=== PATIENT | female | born 1960 | race Caucasian/White ===

== ENCOUNTER 2025-04-28 07:30 | Day surgery (SDC) | payer BC ==
[~2025-04-28 07:30] MED LIST: Sodium Chloride 0.9% 10 ML Syringe FLUSH PRN; Sodium Chloride 0.9% 10 ML Syringe FLUSH SCH
[2025-04-28] MEDS ORDERED: propofoL 500 MG/50 ML 50 ML ONE (07:51)
[2025-04-28] MEDS ORDERED: dexmedeTOMIDine HCl 200 MCG/2 ML SDV ONE (07:52)
[2025-04-28] MEDS ORDERED: Ondansetron 4 MG/2 ML SDV ONE (07:52)
[2025-04-28] MEDS: Lactated Ringers 1,000 ML IV SCH (07:55)
[2025-04-28] MEDS: oxyCODONE ER 10 MG TAB.ER PO SCH (08:44)
[2025-04-28] MEDS: Clindamycin Phosphate in D5W 900 MG in Premix Bag 1 BAG IV ONE (08:44)
[2025-04-28] MEDS ORDERED: Phenylephrine 1% 10 MG/ML SDV ONE (08:54)
[2025-04-28] MEDS: Morphine 8 MG, EPINEPHrine 0.3 MG, Ketorolac 30 MG, Sodium Chloride 0.9% 7.9 ML PRN (09:51)
[2025-04-28] MEDS ORDERED: Propofol 200 MG/20 ML SDV ONE (09:54)
[2025-04-28] MEDS ORDERED: fentaNYL 100 MCG/2 ML SDV IVPUSH PRN (10:26)
[2025-04-28] MEDS: droPERidol 2.5 MG/ML SDV IV PRN (12:27)
[2025-04-28] MEDS: Ketorolac 30 MG/ML SDV IVPUSH PRN (14:54)
== END 2025-04-28 16:00 | disposition home or self-care (01) ==
LOC: JD.SDS 07:30
PROVIDERS: ATTEND Orthopaedic Surgery
DX: M16.11 Unilateral primary osteoarthritis, right hip (principal); E03.9 Hypothyroidism, unspecified; Z88.0 Allergy status to penicillin; Z88.8 Allergy status to other drugs, medicaments and biological substances; Z88.2 Allergy status to sulfonamides; Z79.890 Hormone replacement therapy; Z79.899 Other long term (current) drug therapy
CPT/HCPCS: 0055T; 27130; 73501; 97116; 97161; A9270; C1713; C1776; J0169; J0736; J1790; J1885; J2272; J2371; J2405; J2704; J3373; J7120